=== PATIENT | male | born 1950 | race Caucasian/White ===

== ENCOUNTER 2016-10-29 16:28 | Emergency (ER) | payer SELFPAY ==
[~2016-10-29] VITALS: Ht 167.6 cm; Wt 60.2 kg
[~2016-10-29 16:28] MED LIST: ADVAIR 500/501 DISK IH; AMLODIPINE BES2.5 MG PO; AMLODIPINE BESY10 MG PO; ASPIR-LOW81 MG PO; AZITHROMYCIN250 MG1 PO; Advair 500/50 Diskus IH; Amoxicillin PO; Aspirin PO; BACTRIM,SEPT1 TABLET PO; CARVEDILOL12.5 MG PO; CARVEDILOL3.125 MG PO; CIPRO500 MG PO; CLINORIL150 MG PO; CYANOCOBALAMI100 MCG PO; DIABETIC TUSSI118 ML PO; FLAGYL500 MG PO; FLECTOR 1.3%1 PATC1 TD; HYDROCODON-ACE1 EAC7 PO; LISINOPRIL2.5 MG PO; MECLIZINE HCL25 MG PO; MICRO-K8 ME1 PO; MOBIC7.5 MG PO; MOTRIN IB200 MG PO; MOTRIN800 MG PO; NICOTINE PATCH1 EAC2 TD; NORCO 5/3251 TABLET PO; PANTOPRAZOLE SO40 MG PO; PERCOCET 5/31 TABLET PO; POTASSIUM; PRAVACHOL40 MG PO; PRAVASTATIN SOD10 MG PO; PREDNISONE20 MG PO; PROAIR HFA8.5 GM IH; SELENIUM SULFI118 ML TP; TUDORZA PRESS400 MCG IH; TYLENOL WITH C1 EACH PO; Tudorza Pressair IH; VENTOLIN HFA18 GM IH; VIBRAMYCIN100 MG PO; VICODIN,LORT1 TABLET PO; ZANAFLEX2 MG PO; ZESTORETIC 20-1 EAC1 PO; predniSONE PO
[2016-10-29 17:10] LABS: HEMATOCRIT 45.7 % (38.0-50.0); MCHC 33.3 G/DL (30.0-36.0); MCV 90.1 FL (86-99); MEAN PLAT.VOLUME 11.2 uM^3 (9.0-12.4); PLATELET COUNT 181 K/uL (156-360); RBC DIS.WIDTH-CV 13.1 % (11.8-14.6); RBC DIS.WIDTH-SD 43.1 % (39-53); RED BLOOD COUNT 5.07 M/uL (4.00-5.50); WHITE BLOOD COUNT 6.6 K/uL (4.1-10.2)
[2016-10-29 17:20] LABS: CHLORIDE 108 mEq/L (99-109); POTASSIUM 4.4 mEq/L (3.7-5.4); SODIUM 143 mEq/L (136-147)
[2016-10-29 17:21] LABS: GLUCOSE 132 mg/dL (70-99)
[2016-10-29 17:23] LABS: ANION GAP 8 MEQ/L (2-14)
[2016-10-29 17:25] LABS: GFR ESTIMATE (CALCULATED) > 59 mL/min/
[2016-10-29 17:26] LABS: UREA NITROGEN (BUN) 25 mg/dL (9-23)
[2016-10-29 17:32] LABS: TROP-I INTERPRETATION NEGATIVE; TROPONIN-I < 0.01 ng/mL (0.0-0.30)
[2016-10-29 20:51] LABS: TROP-I INTERPRETATION NEGATIVE; TROPONIN-I < 0.01 ng/mL (0.0-0.30)
[2016-10-29 21:10] VITALS: BP 178/77
== END 2016-10-29 21:17 | disposition home or self-care (01) ==
LOC: EME → EDBD 16:28 → EME 16:28
PROVIDERS: Emergency Medicine
DX: R07.9 Chest pain, unspecified (principal); M54.9 Dorsalgia, unspecified; M25.512 Pain in left shoulder; F17.200 Nicotine dependence, unspecified, uncomplicated
CPT/HCPCS: 71020; 80048; 84484; 85027; 93005; 99281; 99285